=== PATIENT | male | born 1985 | race Two or more races ===

== ENCOUNTER 2016-09-26 01:30 | Emergency (ER) | payer MEDICAID ==
[~2016-09-26] VITALS: Ht 177.8 cm; Wt 62.1 kg
[~2016-09-26 01:30] MED LIST: BACITRACIN15 GM TOPIC; CEPHALEXIN500 MG ORAL; IBUPROFEN600 MG ORAL
[2016-09-26 02:30] VITALS: BP 122/105
--- NOTE | 2016-09-26 02:45 | Emergency Room Report ---
History of Present Illness General Chief Complaint: Sore Throat Source: Patient Present Illness HPI This is a 31-year-old male with no significant past medical history. He presents with chief complaint of throat swelling. Onset for last 2 days. He had a limit of a congestion runny nose and sore throat. He hasn't lymph node there was a large went to urgent care this morning. He was prescribe azithromycin. He took it without a problem. Now swelling is more and he felt like tongue being swollen. No fever or chills. No drooling. Pain is 7/10 worse with palpation. Allergies: Coded Allergies: No Known Allergies (Unverified , 04/14/16) Patient History Past Medical History: see triage record, old chart reviewed Past Surgical History: none Pertinent Family History: none Social History: Denies: smoking Immunizations: other Reviewed Nursing Documentation: PMH: Agreed, PSxH: Agreed Nursing Documentation-PMH Past Medical History: No Stated History Review of Systems Eye: Denies: blurred vision, eye pain ENT: Reports: nose congestion, throat swelling, Denies: ear pain Respiratory: Denies: cough, shortness of breath Cardiovascular: Denies: chest pain, palpitations Gastrointestinal: Denies: abdominal pain, diarrhea, nausea, vomiting Musculoskeletal: Denies: back pain, joint pain Skin: Denies: rash Neurological: Denies: headache, numbness Endocrine: Denies: increased thirst, increased urine Hematologic/Lymphatic: Denies: easy bruising All Other Systems: negative except mentioned in HPI Physical Exam Vital Signs Date Time Temp Pulse Resp B/P Pulse Ox O2 Delivery O2 Flow Rate FiO2 09/26/16 01:53 98.1 79 16 118/80 97 Room Air vitals normal Sp02 EP Interpretation: reviewed, normal General Appearance: well appearing, no apparent distress, alert Head: normocephalic, atraumatic Eyes: bilateral eye EOMI, bilateral eye PERRL ENT: hearing grossly normal, normal pharynx, other - The floor of the mouth on the left side is slightly swollen. No palpable stone in the salivary duct. No trismus. No palpable abscess. No dental tenderness. Neck: full range of motion, supple, no meningismus, other - Tender left submental lymph node/mass. Measured about 3 cm. Respiratory: chest non-tender, lungs clear, normal breath sounds Cardiovascular #1: regular rate, rhythm, no murmur Gastrointestinal: normal bowel sounds, non tender, no mass, no organomegaly, no bruit, non-distended Musculoskeletal: back normal, gait/station normal, normal range of motion Psychiatric: mood/affect normal Skin: warm/dry Medical Decision Making Diagnostic Impression: Primary Impression: Acute sialoadenitis ER Course Patient presents with swelling to salivary gland. This is secondary to obstruction from a stone. No evidence of infection. We'll discharge home. Will refer to ENT. Lab Results Impression labs normal CT/MRI/US Diagnostic Results CT/MRI/US Diagnostic Results : Imaging Test Ordered: CT neck Impression Read by radiologist. Acute sialoadenitis. 1 cm stone in the submandibular duct Last Vital Signs Date Time Temp Pulse Resp B/P Pulse Ox O2 Delivery O2 Flow Rate FiO2 09/26/16 01:53 98.1 79 16 118/80 97 Room Air Status: improved Disposition: HOME, SELF-CARE Condition: Stable Scripts Hydrocodone/Acetaminophen 5-325* (HYDROCODONE/ACETAMINOPHEN 5-325*) 1 Each Tablet 1 TAB ORAL Q6H Y for For Pain, #30 TAB 0 Refills Prov: RAJI BRAY M.D. 09/26/16 Referrals: [facility],REFERRING (PCP) Additional Instructions: Followup with ENT DrRich in 2-3 days if not better. Sooner if having fever. Return if symptom worsen. RAJI BRAY M.D. Sep 26, 2016 02:45
[2016-09-26 02:48] LABS: BASOPHILS % (AUTO) 0.8 % (0.0-2.0); EOSINOPHILS % (AUTO) 3.7 % (0.0-3.0); LYMPHOCYTES % (AUTO) 17.8 % (20.0-45.0); MEAN CORPUSCULAR HEMOGLOBIN 30.5 PG (27.0-31.0); MEAN CORPUSCULAR HGB CONC 33.9 G/DL (32.0-36.0); MEAN CORPUSCULAR VOLUME 90 FL (80-99); MEAN PLATELET VOLUME 7.6 FL (6.5-10.1); MONOCYTES % (AUTO) 12.9 % (1.0-10.0); NEUTROPHILS % (AUTO) 64.7 % (45.0-75.0); PLATELET COUNT 167 K/UL (150-450); RED BLOOD COUNT 4.72 M/UL (4.70-6.10); RED CELL DISTRIBUTION WIDTH 11.5 % (11.6-14.8); WHITE BLOOD COUNT 8.1 K/UL (4.8-10.8)
[2016-09-26 03:04] LABS: ANION GAP 13 (5-15); CALCIUM 8.1 mg/dL (8.6-10.2); CARBON DIOXIDE 26 mEQ/L (20-30); CHLORIDE 100 mEQ/L (98-107); CREATININE 0.9 mg/dL (0.7-1.2); GLOMERULAR FILTRATION RATE > 60 mL/min (>60); HEMOLYSIS 4; POTASSIUM 3.5 mEQ/L (3.4-4.9); SODIUM 139 mEQ/L (135-145)
[2016-09-26] MEDS ORDERED: HYDROCODON-ACE1 EA15 ORAL (03:56)
[2016-09-26 04:00] VITALS: BP 117/75
--- NOTE | 2016-09-26 09:37 | Diagnostic Imaging Report ---
Indication: PAIN Technique: IV administration nonionic contrast Spiral acquisitions obtained through the neck Multiplanar reconstructions were generated. Total dose length product 43 mGycm. CTDIvol(s) length mGy. Radiation dose was minimized using automated exposure control Comparison: None Findings: There is a 12 x 5 mm calcification in the anterior inferior to the left of midline. There is marked hyperemia of the left submandibular gland. Questionable hypoattenuating tubular structure may represent a dilated submandibular duct. There is increased enhancement of the left submandibular gland. Is also prominent enhancement of the left sublingual glands. There is enlargement of the tonsils on the left. No circumscribed low attenuation to suggest abscess demonstrated. No prevertebral soft tissue swelling. The adenoids are mildly prominent. Hypopharynx and larynx are unremarkable. The proximal trachea is unremarkable. Prominent but not frankly enlarged cervical lymph nodes are seen bilaterally. Questionable subcentimeter low-attenuation lesions are seen in the right thyroid lobe. No upper mediastinal mass or adenopathy. The parapharyngeal spaces are symmetric and clear. The dentition is intact. There are are small bilateral maxillary sinus air-fluid levels. Included lung apices are clear. There is a chronic appearing fracture deformity of the T1 spinous process. Impression: Positive for 12.5 mm calculus probably within the left submandibular duct near the orifice. There is probably dilatation of the duct, although this is not well-demonstrated. Associated hyperemia of the left submandibular and sublingual glands is noted. Left tonsillar hypertrophy, possibly reactive secondary to the above No cervical mass or adenopathy Questionable subcentimeter low-attenuation lesions within the right thyroid lobe. No further followup needed Bilateral small maxillary sinus air-fluid levels, consistent with mild acute sinusitis This agrees with the preliminary interpretation provided overnight by [facility]. The CT scanner at [facility] is accredited by the [employer] and the scans are performed using protocols designed to limit radiation exposure to as low as reasonably achievable to attain images of sufficient resolution adequate for diagnostic evaluation.
== END 2016-09-26 04:00 | disposition home or self-care (01) ==
LOC: EMR 01:40
DX: K11.21 Acute sialoadenitis (principal); R09.81 Nasal congestion; J02.9 Acute pharyngitis, unspecified; R09.89 Other specified symptoms and signs involving the circulatory and respiratory systems
CPT/HCPCS: 36415; 70491; 80048; 85025; 99284; Q9967